=== PATIENT | female | born 1990 | race Caucasian/White ===

== ENCOUNTER → 2020-08-25 | Outpatient (CLI) | payer OTHER ==
[~2020-08-25] MED LIST: MACROBID 100 M100 MG PO; NORCO 7.5-3251 EACH PO; TAMIFLU75 MG PO; ZOFRAN ODT 4 MG4 MG SL
== END ==
LOC: HEART 5 08-22 15:30 → RT 12:16
DX: R00.2 Palpitations (principal)

== ENCOUNTER → 2021-03-20 | Outpatient (CLI) | payer BC | LOC: HEART 5 15:23 | DX: R00.2 Palpitations (principal) ==

== ENCOUNTER → 2021-04-27 | Outpatient (CLI) | payer BC | LOC: ECHO 09:59 | DX: R00.2 Palpitations (principal) | CPT/HCPCS: ECHO; 93306 ==